=== PATIENT | female | born 1955 | race Caucasian/White ===

== ENCOUNTER → 2019-06-01 14:29 | Outpatient (CLI) | payer MEDICARE, SELFPAY | PROVIDERS: Visit Provider Urology | DX: R31.9 Hematuria, unspecified (principal) | CPT/HCPCS: 87086 ==

== ENCOUNTER → 2020-04-06 08:15 | Outpatient (CLI) | payer MEDICARE, SELFPAY ==
--- NOTE | 2020-04-06 08:20 | MM_ITS ---
PROCEDURE: MM DIG SCREENING MAMM BI W/CAD Digital Breast Tomosynthesis Included CLINICAL INDICATION: SCREENING There is a history of breast cancer in the patient's maternal aunt. There has been a previous cyst aspiration left breast with benign findings. COMPARISON: MG DMSB DIG MAMM-SCREEN BLAINE from 04/08/2015 MG DMDXUR DIG MAMM-DX UNI-RT from 11/24/2015 MG DMSB DIG MAMM-SCREEN BLAINE W/CAD from 07/17/2016 TECHNIQUE: Standard CC and MLO images and 3D Tomosynthesis was obtained. R2 CAD reviewed. FINDINGS: Moderate scattered fibroglandular densities are seen in the central portions of both breasts. There asymmetric nodular density deep upper inner quadrant right breast. This has been seen previously but there may have been a slight interval increase in size or change in the border. Kwesi images are somewhat indeterminate. Recommend the patient return for spot compression views and ultrasound for additional evaluation. There is no new or suspicious lesion in either breast and no suspicious microcalcifications. There is a benign-appearing calcification left breast. IMPRESSION: Fibrofatty parenchyma with possible change in asymmetric nodular lesion deep right breast BI-RAD Category: 0 Need Additional Imaging Evaluation FOLLOW-UP: Immediate Follow-up Recommended (A letter has been sent to the patient regarding results of the study.) Dictated by: Dr. Merrill Farrar MD 04/08/2020 07:44 Dr. Merrill Farrar MD in [place] 04/08/2020 07:44
--- NOTE | 2020-04-06 08:20 | XR_ITS ---
PROCEDURE: XR DEXA AXIAL SKELETON CLINICAL HISTORY: POST MENOPAUSAL COMPARISON: No exams were available for comparison FINDINGS: The right hip BMD is 0.589 with a T-score of -2.3. The left hip BMD is 0.595 with a T-score of -2.3. The lumbar spine BMD is with a T-score of . IMPRESSION: Based on these results a follow-up exam is recommended in year. Dictated by: Oli Patterson MD 04/06/2020 17:03 Oli Patterson MD in [place] 04/06/2020 20:29
== END ==
PROVIDERS: PCP Internal Medicine Adolescent Medicine; Visit Provider Internal Medicine Adolescent Medicine
DX: Z12.31 Encounter for screening mammogram for malignant neoplasm of breast (principal); Z13.820 Encounter for screening for osteoporosis; Z78.0 Asymptomatic menopausal state
CPT/HCPCS: 77063; 77067; 77080